=== PATIENT | female | born 1945 | race Caucasian/White ===

== ENCOUNTER 2022-05-09 08:18 | Emergency (ER) | payer MEDICARE, BC, SELFPAY ==
[2022-05-09 08:20] VITALS: BP 130/76; PULSE 93; RESP 18; TEMP 36.6; O2SAT 96; BMI 26.6
--- NOTE | 2022-05-09 08:29 | CRLHL7_ITS ---
For Patients: As a result of the Century Cures Act, medical imaging exams and procedure reports are released immediately into your electronic medical record. You may view this report before your referring provider. If you have questions, please contact your health care provider. Indication: Pain. Technique: Left wrist, 3 views. Comparison: None. Findings/Impression: Bones: Alignment is normal. No displaced fractures. Subtle lucency through the scaphoid waist, possibly chronic. Recommend correlation for point tenderness if nondisplaced fracture is suspected. Joint spaces: Severe degenerative changes most pronounced at the triscaphe joint. Small joint effusion which could suggest occult injury. Soft tissues: Soft tissue edema. Dictated by Denny Farmer MD @ 05/09/2022 9:24:13 AM (Electronically Signed)
--- NOTE | 2022-05-09 08:30 | ED.GENADULT ---
HPI - General Adult General Chief complaint: Extremity Pain/Injury, Upper Stated complaint: LT wrist pain Time Seen by Provider: 05/09/22 08:27 History of Present Illness HPI narrative: This 76-year-old female comes in with pain and swelling in her left wrist. She states that there was no particular injury event but was doing some vacuuming and wondered if she over did it. She does have some diffuse swelling in her left wrist. Range of motion is intact. Related Data Home Medications Medication Instructions Recorded Confirmed amlodipine 5 mg tablet 5 mg PO DAILY 09/24/21 05/09/22 cholecalciferol (vitamin D3) 25 1,000 unit PO DAILY 09/24/21 05/09/22 mcg (1,000 unit) capsule losartan 100 mg tablet 100 mg PO QDAY 09/24/21 05/09/22 multivitamin 1 tab PO QDAY 09/24/21 05/09/22 pantoprazole 20 mg tablet,delayed 20 mg PO DAILY 09/24/21 05/09/22 release simvastatin 20 mg tablet 20 mg PO .Bedtime 09/24/21 05/09/22 vitamin E (dl, acetate) 180 mg 180 mg PO DAILY 09/24/21 05/09/22 (400 unit) capsule zinc sulfate 50 mg zinc (220 mg) 50 mg PO QDAY 09/24/21 05/09/22 tablet Allergies Allergy/AdvReac Type Severity Reaction Status Date / Time No Known Allergies Allergy Unknown Verified 05/09/22 08:24 Review of Systems Status of ROS: Reports: 10 or more systems reviewed and unremarkable except as noted in History and below Narrative: Constitutional: No fevers, no weight gain or loss. Eyes: No discharge. No vision changes. HENT: No congestion, no sore throat, no ear pain. Cardiovascular: No chest pain, no palpitations. Respiratory: No shortness of breath, no wheezes, no cough. Gastrointestinal: No abdominal pain, no vomiting, no diarrhea. Genitourinary: No dysuria, no hematuria. Musculoskeletal: Pain and swelling in the left wrist. She reports osteoarthritis in her knee that resulted in a knee replacement. Skin: No rashes, no pruritis. Neurological: No dizziness, weakness, sensory change, speech change. Endo/Heme/Allergies: No bruising or bleeding. No polydipsia. Pysch: no suicidality, no anxiety, no insomnia. All other systems reviewed and are negative. [facility] Medical History (Updated 05/09/22 @ 09:53 by Mitchel Hunter MD) Arthritis ?M19.90 - Unspecified osteoarthritis, unspecified site (ICD-10) Osteoarthritis of right knee ?M17.11 - Unilateral primary osteoarthritis, right knee (ICD-10) Spinal stenosis ?M48.00 - Spinal stenosis, site unspecified (ICD-10) Surgical History (Updated 09/25/21 @ 13:25 by Augustina Kenny ~ [facility], 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, [facility]) Smoking Status: Former smoker What tobacco products do you use: cigarettes Smoking quit date/years: >15 years ago Do you use any of these nicotine containing products: None Second hand tobacco smoke exposure: No Exam Narrative: Exam Narrative: Constitutional: Well-developed, well-nourished, no acute distress. HEENT: Normocephalic, atraumatic. Neck: Normal range of motion. Nontender. Supple. Heart: Intact distal pulses. Lungs: No chest discomfort. No wheezes, rhonchi, or rales. Abdomen: Nontender. Back: Normal range of motion. Extremities: Normal range of motion. No injury. Left wrist has diffuse swelling and tenderness. No erythema. Skin: Intact. No rash. Warm. No erythema or pallor. Neurologic: No altered sensation. No weakness. Alert and oriented. Psychiatric: No suicidality. No anxiety or depression. No insomnia. Nursing notes and vitals signs are reviewed. Const: Vital Signs, click to edit/add: Vital Signs - 24 hr 05/09/22 08:20 Temperature 97.8 F Pulse Rate [Right Pulse Oximeter] 93 Respiratory Rate 18 Blood Pressure [Ri ght Upper Arm] 130/76 Pulse Oximetry 96 Oxygen Delivery Me thod Room Air Course Vital Signs Vital signs: Initial Vital Signs Temperature 97.8 F 05/09/22 08:20 Temperature Source Temporal Artery Scan 05/09/22 08:20 Pulse Rate 93 05/09/22 08:20 Respiratory Rate 18 05/09/22 08:20 Blood Pressure 130/76 05/09/22 08:20 Blood Pressure Mean 94 05/09/22 08:20 Blood Pressure Position Sitting 05/09/22 08:20 Pulse Oximetry 96 05/09/22 08:20 Oxygen Delivery Method Room Air 05/09/22 08:20 Vital Signs Temperature 97.8 F 05/09/22 08:20 Pulse Rate 93 05/09/22 08:20 Respiratory Rate 18 05/09/22 08:20 Blood Pressure 130/76 05/09/22 08:20 Pulse Oximetry 96 05/09/22 08:20 Oxygen Delivery Method Room Air 05/09/22 08:20 Temperature 97.8 F 05/09/22 08:20 Pulse Rate 93 05/09/22 08:20 Respiratory Rate 18 05/09/22 08:20 Blood Pressure 130/76 05/09/22 08:20 Pulse Oximetry 96 05/09/22 08:20 Oxygen Delivery Method Room Air 05/09/22 08:20 Medical Decision Making MDM Narrative Medical decision making narrative: This patient comes in with pain in her left wrist. She states that she was using the vacuum furniture cleaner with her left hand because her right shoulder is been causing pain for her. She has had a knee replaced and thus has evidence of diffuse degenerative disease in her bones. X-ray imaging of the left wrist does show severe degenerative changes. There is no obvious fracture or new finding. The radiologist was reporting some suspicion of a possible scaphoid injury. Patient does not have any tenderness in the anatomical snuffbox. She received a wrist splint and can use [id number] medicines as needed and directed for pain relief. Imaging Data XR L Wrist: Radiologist's impression: Bones: Alignment is normal. No displaced fractures. Subtle lucency through the scaphoid waist, possibly chronic. Recommend correlation for point tenderness if nondisplaced fracture is suspected. Joint spaces: Severe degenerative changes most pronounced at the triscaphe joint. Small joint effusion which could suggest occult injury. Soft tissues: Soft tissue edema. Discharge Plan Discharge Clinical Impression: Arthritis of wrist, degenerative Patient Disposition: Home, Self-Care Condition: Unchanged Additional Instructions: Wear splint as needed. Activity as tolerated. Use [id number] medicines as needed and directed. Follow up with primary physician for ongoing management. Prescriptions: No Action vitamin E (dl, acetate) 180 mg (400 unit) capsule 180 mg PO DAILY amlodipine 5 mg tablet 5 mg PO DAILY pantoprazole 20 mg tablet,delayed release (DR/EC) 20 mg PO DAILY multivitamin Tablet 1 tab PO QDAY cholecalciferol (vitamin D3) 25 mcg (1,000 unit) capsule 1,000 unit PO DAILY simvastatin 20 mg tablet 20 mg PO .Bedtime zinc sulfate 50 mg zinc (220 mg) tablet 50 mg PO QDAY losartan 100 mg tablet 100 mg PO QDAY Follow Up/Referrals: Kwaku Hyde PA-C [Primary Care Provider] - Stand Alone Forms: Compar[employer] Info Instructions
== END 2022-05-09 10:01 | disposition home or self-care (01) ==
PROVIDERS: Emergency Provider Emergency Medicine Emergency Medical Services; PCP Physician Assistant
DX: M19.032 Primary osteoarthritis, left wrist (principal)
CPT/HCPCS: 73110; 99283; 99284